=== PATIENT | female | born 1990 | race African-American/Black ===

== ENCOUNTER 2017-08-19 15:36 | Emergency (ER) | payer BC ==
[~2017-08-19] VITALS: Wt 60.0 kg
[2017-08-19] MEDS ORDERED: IBUPROFEN 800 MG TAB PO ONE (16:30)
--- NOTE | 2017-08-19 17:52 | RADRPT ---
PROCEDURE: CT Brain without contrast. CLINICAL INDICATION: Pain, headache TECHNIQUE: Routine CT scan of the brain was performed on a high resolution multi detector scanner without intravenous contrast. One or more of the following dose reduction techniques were used: Auto mated exposure control; Adjustment of the mA and/or kV according to patient size; Use of iterative r econstruction technique. CTDI = 41 mGy. DLP = 720 mGy-cm. DICOM images are available. COMPARISON: No prior relevant examinations are available for comparison. FINDINGS: Hemorrhage: No evidence of intracranial hemorrhage. Acute ischemic changes: No evidence of acute ischemic changes. Mass effect: None. Parenchymal volume: Within normal limits for age. Ventricular system: Concordant with parenchymal volume. Chronic changes: Parenchymal attenuation is within normal limits. Extracranial soft tissues: Unremarkable. Calvarium: No fractures. Paranasal sinuses: Visualized paranasal sinuses are clear. Mastoid air cells: Visualized mastoid air cells are clear. IMPRESSION: No acute intracranial abnormalities. Normal appearance of the brain parenchyma. RPTAT: AADD .Keshav Che MD, MD Date Time Electronically viewed and signed by .Keshav Che MD, on 08/19/2017 17:05 .B/
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
[2017-08-19] MEDS ORDERED: IBUP800T25 PO (17:57)
[2017-08-19 18:21] VITALS: BP 113/70; PULSE 100; RESP 16
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
== END 2017-08-19 18:21 | disposition home or self-care (01) ==
LOC: E/R 15:36
DX: S13.4XXA Sprain of ligaments of cervical spine, initial encounter (principal); S09.90XA Unspecified injury of head, initial encounter; R51 Headache; V49.40XA Driver injured in collision with unspecified motor vehicles in traffic accident, initial encounter
CPT/HCPCS: 70450; 72125